=== PATIENT | male | born 1985 | race Caucasian/White ===

== ENCOUNTER 2017-08-17 20:02 | Emergency (ER) | payer MEDICARE, MEDICAID ==
[~2017-08-17 20:02] MED LIST: AA/A14DR7 OT; ACE500 PO; ALB17R INH; ALB18R INH; ALBU8.5H12 IH; ALPR-429 PO; AZIT-1 PO; AZIT1PAC21 PO; BENZ200C15 PO; CEPH500C24 PO; CIP500 PO; CIPR-214 PO; CLA500 PO; CLI150 PO; CYC10 PO; CYCL-332 PO; CYCL10TA29 PO; DOXY-179 PO; HYDR-3083 PO; HYDR-3140 PO; HYDR-389 PO; HYDR-4308 PO; HYDR-4309 PO; HYDR1TAB PO; IBU800 PO; IBUP-1618 PO; IBUP600T22 PO; IBUP800T37 PO; KET10 PO; LOR1 PO; LOR5 PO; LOR5/325 PO; LOR75 PO; METH4TAB66 PO; METHO500 PO; METR-1 PO; NAP250 PO; NAPR-1003 PO; NAPR220C13 PO; NO HOME MEDS; NOR5/325 PO; OMEP-153 PO; OMEP-218 PO; ONDA4TAB PO; OXYC-865 PO; OXYC-869 PO; PER PO; PRE20 PO; PRED20TA6 PO; PROAIRPT IH; PROM-110 PO; SUCR1ORA17 PO; TRA50 PO; TRAM-627 PO; [UNRECOGNIZED DRUG - CODE] PO
--- NOTE | 2017-08-17 20:08 | ER Report ---
History and Physical Time Seen By MD: 20:07 HPI/ROS CHIEF COMPLAINT: Abdominal pain HISTORY OF PRESENT ILLNESS: 32-year-old male presents ambulatory to the ER complaining of abdominal pain for 3 days. He notes increased pain with flexing of his abdominal muscles. He notes the pain is most intense at that margin of his pubic bone. Extending up into his abdomen. He's had no nausea, vomiting, diarrhea or constipation. He denies fever or chills. He denies dysuria, frequency or hematuria. He states he was moving a large trailer that got stuck. He was pushing it with all of his might. REVIEW OF SYSTEMS: Respiratory: No cough, no dyspnea. Cardiovascular: No chest pain, no palpitations. Gastrointestinal: As above Musculoskeletal: No back pain. Allergies: Coded Allergies: Penicillins (Verified Allergy, Mild, 08/17/17) amoxicillin (Verified Allergy, Mild, 08/17/17) hydromorphone HCl (Verified Adverse Reaction, Mild, MAKES HIM VERY SICK., 08/17/17) Home Meds Active Scripts Tramadol Hcl (TRAMADOL HCL) 50 Mg Tablet, 1 TAB PO Q6H Y for PAIN, #15 MG TAKE ONE TO TWO TABLETS BY MOUTH EVERY FOUR TO SIX HOURS NEEDED Prov:LISE BHATIA DO 08/17/17 Reported Medications Levetiracetam (LEVETIRACETAM) 500 Mg Tablet, 500 MG PO BID 08/17/17 Albuterol Sulfate (VENTOLIN HFA) 18 Gm Inh, 1-2 PUFF INH 3-4XD, INH 04/06/17 Reviewed Nurses Notes: Yes Old Medical Records Reviewed: Yes Hx Smoking: Yes Smoking Status: Current: Every Day Smoker Exposure to Second Hand Smoke?: Yes Hx Substance Use Disorder: No Hx Alcohol Use: Yes (OCC) Constitutional Vital Sign - Last 24 Hours 08/17/17 08/17/17 08/17/17 08/17/17 20:13 20:13 20:17 20:32 Temp 98.5 Pulse 76 69 70 Resp 16 B/P (MAP) 135/82 135/82 (99) Pulse Ox 97 100 100 O2 Delivery Room Air 08/17/17 20:37 Pulse 64 Pulse Ox 97 Physical Exam General Appearance: The patient is alert, has no immediate need for airway protection and no current signs of toxicity.. Vital signs stable, afebrile, pulse ox normal HEENT: Pupils equal and round no injection. Oropharynx without redness or exudate, mucous. Membranes are moist Respiratory: Chest is non tender, lungs are clear to auscultation. Cardiac: regular rate and rhythm Gastrointestinal: Abdomen is soft, no masses, bowel sounds normal. There is tenderness on flexion of the abdominal muscles and palpation. There is mild tenderness on palpation with relaxation the muscles. There is no rebound or guarding, says especially tender in the lower abdomen over the pubic symphysis on the insertion of the abdominal rectus muscles Musculoskeletal: Neck: Neck is supple and non tender. No lymphadenopathy Extremities have full range of motion and are non tender. Skin: No rashes or lesions. DIFFERENTIAL DIAGNOSIS: After history and physical exam differential diagnosis was considered for abdominal pain including but not limited to appendicitis, cholecystitis, abdominal muscle wall strain, gastritis and urinary tract infection. Medical Decision Making ED Course/Re-evaluation ED Course Patient was admitted to an examination room. H&P was done. The dental diagnoses was considered. On clinical examination. Patient has abdominal wall tenderness on examination. There is no deep pathology. He has no associated symptoms to suggest GI pathology such as vomiting, diarrhea or fever. Patient advised to conservative treatment plan of Tylenol and ibuprofen. He'll be given a limited supply of tramadol for Her and pain relief. He is advised to apply heating pad to his abdominal wall in the most affected areas. Patient advised to follow-up with primary care if unimproved in one week. Decision to Disposition Date: Aug 17, 2017 Decision to Disposition Time: 20:34 Depart Departure Latest Vital Signs Vital Signs Date Time Temp Pulse Resp B/P (MAP) Pulse Ox O2 Delivery O2 Flow Rate FiO2 08/17/17 20:37 64 97 08/17/17 20:13 135/82 (99) 08/17/17 20:13 98.5 16 Room Air Impression: Primary Impression: Strain of muscle, fascia and tendon of abdomen, initial encounter Condition: Improved Disposition: HOME OR SELF-CARE Referrals: MUNDO MARR (PCP) New Scripts Tramadol Hcl (TRAMADOL HCL) 50 Mg Tablet 1 TAB PO Q6H Y for PAIN, #15 MG TAKE ONE TO TWO TABLETS BY MOUTH EVERY FOUR TO SIX HOURS NEEDED Prov: LISE BHATIA DO 08/17/17 Patient Instructions: Muscle Strain (ED) Additional Instructions: Take ibuprofen 200 mg 3 tablets 3 times a day with food Apply heating pad to your abdominal wall to help the muscles heal Follow-up with your primary care if unimproved in one week LISE BHATIA DO Aug 17, 2017 20:08
[2017-08-17 20:13] VITALS: BP 135/82
[2017-08-17] MEDS ORDERED: LEVE500T73 PO (20:17)
[2017-08-17] MEDS ORDERED: TRAM-420 PO (20:37)
[2017-08-17] MEDS ORDERED: traMADol 50 MG TAB TH 2 TAB/BOTTLE PO ONE (20:45)
== END 2017-08-17 20:48 | disposition home or self-care (01) ==
LOC: ER 20:29
DX: S39.011A Strain of muscle, fascia and tendon of abdomen, initial encounter (principal)
CPT/HCPCS: 99282; A9270; C9399

== ENCOUNTER 2017-08-20 04:31 | Inpatient (IN) | payer MEDICARE, MEDICAID ==
[2017-08-20] VITALS (11 sets, daily range): BP systolic 109–134; BP diastolic 65–87
[~2017-08-20] VITALS: Ht 170.2 cm; Wt 69.4 kg
[~2017-08-20 04:31] MED LIST changes: +LEVE500T73 PO; +TRAM-420 PO
--- NOTE | 2017-08-20 04:43 | ER Report ---
History and Physical Time Seen By MD: 04:42 Hx. of Stated Complaint: Pt reporting abdominal pain with associated nausea. BM yesterday. Pt states he took half a norco with no relief. HPI/ROS CHIEF COMPLAINT: abdominal pain HISTORY OF PRESENT ILLNESS: This is a 32 year old male. He has been having abdominal pain for about a week now. Epigastric area and radiated down to lower abdomen, worse on the right side. He was seen and told he had abdominal muscle strain, but not improving and the patient does not think that this is a strain. He has no fevers or chills. He has nausea and vomiting. He has been having daily bowel movements, brown stool without blood or melena. No diarrhea. Normal urination without dysuria. Moving makes the pain worse. Deep breaths and coughing seem to make it worse as well. He has no shortness of breath or chest pain. Some pain into his back. No history of abdominal problems, surgeries, but he does have a history of being diagnosed with H pylori, but stopped the medications because they were causing problems. REVIEW OF SYSTEMS: Constitutional: No fever or chills. Eyes: No vision changes. ENT: No sore throat. No congestion. Cardiovascular: No chest pain. No palpitations. Respiratory: No cough. Gastrointestinal: as above. Genitourinary: as above. Musculoskeletal: No other musculoskeletal pain. Skin: No rashes. Neurological: No numbness. No headache. Allergies: Coded Allergies: Penicillins (Verified Allergy, Mild, 08/17/17) amoxicillin (Verified Allergy, Mild, 08/17/17) hydromorphone HCl (Verified Adverse Reaction, Mild, MAKES HIM VERY SICK., 08/17/17) Uncoded Allergies: contrast dye (Adverse Reaction, Unknown, 08/20/17) Home Meds Active Scripts Tramadol Hcl (TRAMADOL HCL) 50 Mg Tablet, 1 TAB PO Q6H Y for PAIN, #15 MG TAKE ONE TO TWO TABLETS BY MOUTH EVERY FOUR TO SIX HOURS NEEDED Prov:LISE BHATIA DO 08/17/17 Reported Medications Levetiracetam (LEVETIRACETAM) 500 Mg Tablet, 500 MG PO BID 08/17/17 Albuterol Sulfate (VENTOLIN HFA) 18 Gm Inh, 1-2 PUFF INH 3-4XD, INH 12/5/17 Reviewed Nurses Notes: Yes Hx Smoking: Yes Smoking Status: Current: Every Day Smoker Exposure to Second Hand Smoke?: Yes Hx Substance Use Disorder: No Hx Alcohol Use: Yes (OCC) Constitutional Vital Sign - Last 24 Hours 08/20/17 08/20/17 08/20/17 08/20/17 04:35 04:36 04:46 04:51 Temp 97.5 Pulse 76 76 58 Resp 16 B/P (MAP) 138/80 (99) 138/80 Pulse Ox 100 100 O2 Delivery Room Air 08/20/17 08/20/17 08/20/17 08/20/17 05:21 05:41 05:42 06:00 Pulse 52 52 B/P (MAP) 131/103 (112) 137/75 (95) Pulse Ox 100 99 97 08/20/17 08/20/17 08/20/17 08/20/17 06:02 06:24 06:32 06:40 Pulse 62 72 B/P (MAP) 114/89 (97) 121/79 (93) Pulse Ox 98 99 08/20/17 08/20/17 08/20/17 08/20/17 06:47 06:54 06:59 07:00 Pulse 53 56 54 B/P (MAP) 125/80 (95) Pulse Ox 98 98 96 Physical Exam General Appearance: The patient is alert. Having some acute distress due to pain. Eyes: Pupils are equal, round. No pallor, injection or icterus. ENT: Mucous membranes are moist. Normal oral mucosa. Posterior oropharynx is normal. Neck: Supple and non tender. Respiratory: Lungs are clear to auscultation. Deep breaths do seem to exacerbate the abdominal pain. Cardiovascular: Regular rate and rhythm. No murmurs, gallops or rubs. Normal capillary refill. Gastrointestinal: Abdomen is soft, diffuse tenderness worse in epigastric and right lower abdomen. Nondistended. He has guarding, but no rebound. No masses or organomegaly. Normal active bowel sounds. Has some mild discomfort with percussion of the costovertebral angles bilaterally, somewhat more on the right side. Neurological: Alert and oriented x3. No focal neurologic deficits Skin: Warm and dry. Musculoskeletal: Extremities are nontender. No tenderness in palpation of the cervical, thoracic and lumbar spine. DIFFERENTIAL DIAGNOSIS: After history and physical exam, differential diagnosis was considered for abdominal pain including but not limited to appendicitis, cholecystitis, gastritis, ulcer disease, history of h pylori (not completely treated) and urinary tract infection. Medical Decision Making Data Points Result Diagram: 08/20/17 0509 08/20/17 0509 Laboratory Hematology Test 08/20/17 04:37 08/20/17 05:09 Urine Color Yellow Urine Clarity Clear Urine pH 6.0 pH (4.8-9.5) Urine Specific Junior 1.021 Urine Protein Negative mg/dL (NEGATIVE) Urine Glucose (UA) Negative mg/dL (NEGATIVE) Urine Ketones Trace mg/dL (NEGATIVE) Urine Blood Negative (NEGATIVE) Urine Nitrite Negative (NEGATIVE) Urine Bilirubin Negative (NEGATIVE) Urine Urobilinogen 2.0 mg/dL (0.2-1.9) Urine Leukocyte Esterase Negative (NEGATIVE) Urine RBC None /HPF (0-2/HPF) Urine WBC <1 /HPF (0-5/HPF) Urine Squamous Epithelial Cells Few /LPF (</=FEW) Urine Bacteria Negative /HPF (NONE-FEW) Urine Mucus Few /HPF (NONE-FEW) Red Blood Count 5.86 M/uL (4.00-5.60) Mean Corpuscular Volume 90.5 fL (80.0-96.0) Mean Corpuscular Hemoglobin 31.4 pg (26.0-33.0) Mean Corpuscular Hemoglobin Concent 34.7 g/dL (32.0-36.0) Red Cell Distribution Width 13.6 % (11.5-14.5) Mean Platelet Volume 8.0 fL (7.2-11.1) Neutrophils (%) (Auto) 81.6 % (39.4-72.5) Lymphocytes (%) (Auto) 10.6 % (17.6-49.6) Monocytes (%) (Auto) 7.0 % (4.1-12.4) Eosinophils (%) (Auto) 0.6 % (0.4-6.7) Basophils (%) (Auto) 0.2 % (0.3-1.4) Nucleated RBC Relative Count (auto) 0.0 /100WBC Neutrophils # (Auto) 11.4 K/uL (2.0-7.4) Lymphocytes # (Auto) 1.5 K/uL (1.3-3.6) Monocytes # (Auto) 1.0 K/uL (0.3-1.0) Eosinophils # (Auto) 0.1 K/uL (0.0-0.5) Basophils # (Auto) 0.0 K/uL (0.0-0.1) Nucleated RBC Absolute Count (auto) 0.00 K/uL Sodium Level 139 mmol/L (137-145) Potassium Level 4.2 mmol/L (3.5-5.0) Chloride Level 102 mmol/L (98-107) Carbon Dioxide Level 24 mmol/L (22-30) Blood Urea Nitrogen 10 mg/dl (9-21) Creatinine 0.90 mg/dl (0.66-1.25) Glomerular Filtration Rate Calc > 60.0 Random Glucose 141 mg/dl (75-110) Calcium Level 9.8 mg/dl (8.4-10.2) Total Bilirubin 1.0 mg/dl (0.2-1.3) Aspartate Amino Transf (AST/SGOT) 16 U/L (0-35) Alanine Aminotransferase (ALT/SGPT) 18 U/L (0-56) Alkaline Phosphatase 81 U/L (0-126) Total Protein 7.2 gm/dl (6.3-8.2) Albumin 4.3 g/dl (3.5-5.0) Amylase Level 131 U/L (0-110) Lipase 271 U/L (23-300) Chemistry Test 08/20/17 04:37 08/20/17 05:09 Urine Color Yellow Urine Clarity Clear Urine pH 6.0 pH (4.8-9.5) Urine Specific Junior 1.021 Urine Protein Negative mg/dL (NEGATIVE) Urine Glucose (UA) Negative mg/dL (NEGATIVE) Urine Ketones Trace mg/dL (NEGATIVE) Urine Blood Negative (NEGATIVE) Urine Nitrite Negative (NEGATIVE) Urine Bilirubin Negative (NEGATIVE) Urine Urobilinogen 2.0 mg/dL (0.2-1.9) Urine Leukocyte Esterase Negative (NEGATIVE) Urine RBC None /HPF (0-2/HPF) Urine WBC <1 /HPF (0-5/HPF) Urine Squamous Epithelial Cells Few /LPF (</=FEW) Urine Bacteria Negative /HPF (NONE-FEW) Urine Mucus Few /HPF (NONE-FEW) White Blood Count 14.0 k/uL (4.5-11.0) Red Blood Count 5.86 M/uL (4.00-5.60) Hemoglobin 18.4 g/dL (14.0-18.0) Hematocrit 53.0 % (42.0-52.0) Mean Corpuscular Volume 90.5 fL (80.0-96.0) Mean Corpuscular Hemoglobin 31.4 pg (26.0-33.0) Mean Corpuscular Hemoglobin Concent 34.7 g/dL (32.0-36.0) Red Cell Distribution Width 13.6 % (11.5-14.5) Platelet Count 212 K/uL (150-450) Mean Platelet Volume 8.0 fL (7.2-11.1) Neutrophils (%) (Auto) 81.6 % (39.4-72.5) Lymphocytes (%) (Auto) 10.6 % (17.6-49.6) Monocytes (%) (Auto) 7.0 % (4.1-12.4) Eosinophils (%) (Auto) 0.6 % (0.4-6.7) Basophils (%) (Auto) 0.2 % (0.3-1.4) Nucleated RBC Relative Count (auto) 0.0 /100WBC Neutrophils # (Auto) 11.4 K/uL (2.0-7.4) Lymphocytes # (Auto) 1.5 K/uL (1.3-3.6) Monocytes # (Auto) 1.0 K/uL (0.3-1.0) Eosinophils # (Auto) 0.1 K/uL (0.0-0.5) Basophils # (Auto) 0.0 K/uL (0.0-0.1) Nucleated RBC Absolute Count (auto) 0.00 K/uL Glomerular Filtration Rate Calc > 60.0 Calcium Level 9.8 mg/dl (8.4-10.2) Total Bilirubin 1.0 mg/dl (0.2-1.3) Aspartate Amino Transf (AST/SGOT) 16 U/L (0-35) Alanine Aminotransferase (ALT/SGPT) 18 U/L (0-56) Alkaline Phosphatase 81 U/L (0-126) Total Protein 7.2 gm/dl (6.3-8.2) Albumin 4.3 g/dl (3.5-5.0) Amylase Level 131 U/L (0-110) Lipase 271 U/L (23-300) Urinalysis Test 08/20/17 04:37 Urine Color Yellow Urine Clarity Clear Urine pH 6.0 pH (4.8-9.5) Urine Specific Junior 1.021 Urine Protein Negative mg/dL (NEGATIVE) Urine Glucose (UA) Negative mg/dL (NEGATIVE) Urine Ketones Trace mg/dL (NEGATIVE) Urine Blood Negative (NEGATIVE) Urine Nitrite Negative (NEGATIVE) Urine Bilirubin Negative (NEGATIVE) Urine Urobilinogen 2.0 mg/dL (0.2-1.9) Urine Leukocyte Esterase Negative (NEGATIVE) Urine RBC None /HPF (0-2/HPF) Urine WBC <1 /HPF (0-5/HPF) Urine Squamous Epithelial Cells Few /LPF (</=FEW) Urine Bacteria Negative /HPF (NONE-FEW) Urine Mucus Few /HPF (NONE-FEW) EKG/Imaging Imaging COMPUTED TOMOGRAPHY ABDOMEN AND PELVIS WITHOUT INTRAVENOUS CONTRAST DATE OF EXAM: 08/20/2017 5:21 AM INDICATION: Epigastric abdominal pain, radiating to the lower abdomen. COMPARISON: Lumbar spine and sacroiliac joint radiographs 04/18/2017. TECHNIQUE: Noncontrast abdomen and pelvis CT performed. Sagittal and coronal reconstructions were performed. One of the following dose optimization techniques was utilized in the performance of this exam: Automated exposure control; adjustment of the mA and/or kV according to the patient's size; or use of an iterative reconstruction technique. Specific details can be referenced in the facility's radiology CT exam operational policy. FINDINGS: Lung bases: Clear. Liver: Normal. Gallbladder and bile ducts: Normal. Spleen: Normal. Pancreas: Normal. Adrenals: Normal. Kidneys, ureters and bladder: Normal. Retroperitoneum and aorta: Normal aorta. No adenopathy. GI tract, mesentery and peritoneum: The appendix is dilated, measuring approximately 15 mm in diameter. Appendicolith. There is marked periappendiceal inflammation. Small volume of free fluid in the pelvis is likely reactive. No well-demonstrated drainable collection/abscess. No evidence of obstruction and the remainder of the bowel. No pneumatosis or pneumoperitoneum. Prostate and seminal vesicles: Normal. Bones and soft tissues: No acute abnormality or suspicious lesion. IMPRESSION: Acute appendicitis with marked periappendiceal inflammation and a small volume of free fluid in the pelvis. No definite perforation or drainable collection/abscess. Dr. Holland discussed this case with ANKITA PERALTA on 08/20/2017 5:55 AM. Report Dictated By: Ralph Holland MD at 08/20/2017 5:47 AM ED Course/Re-evaluation Clinical Indication for ER IV: Hydration, IV Access ED Course Initial evaluation was done. Labs obtained. Patient had a noncontrast CT scan of the abdomen and pelvis as noted above. White count is elevated. Patient is afebrile. The rest of labs are unremarkable. CT scan shows acute appendicitis. Initial treatment with a liter of normal saline, Zofran 4 mg IV, and Toradol 30 mg IV did help with his pain and symptoms. I discussed the case with Dr. Reese. The patient was started on Levaquin 500 milligrams IV, Flagyl 500 mg IV , and we added 2 mg of IV morphine to help with pain. Decision to Disposition Date: Aug 20, 2017 Decision to Disposition Time: 06:12 Depart Departure Latest Vital Signs Vital Signs Date Time Temp Pulse Resp B/P (MAP) Pulse Ox O2 Delivery O2 Flow Rate FiO2 08/20/17 07:00 125/80 (95) 08/20/17 06:59 54 96 08/20/17 04:36 97.5 16 Room Air Impression: Primary Impression: Appendicitis Condition: Condition Unchanged Disposition: ADMIT FROM ER TO OR Referrals: MUNDO MARR (PCP) Problem Qualifiers Primary Impression: Appendicitis Appendicitis type: acute appendicitis Acute appendicitis type: with localized peritonitis Qualified Codes: K35.3 - Acute appendicitis with localized peritonitis ANKITA PERALTA MD Aug 20, 2017 04:43
[2017-08-20] MEDS ORDERED: NS(*) 0.9% 1000 ML BAG 1,000 ML IV ONE (04:49)
[2017-08-20] MEDS ORDERED: ONDANSETRON 4 MG/2 ML VIAL IVP ONE (04:50)
[2017-08-20] MEDS ORDERED: PANTOPRAZOLE SOD 40 MG IV VIAL IVP ONE (04:50)
[2017-08-20] MEDS ORDERED: KETOROLAC 30 MG/ML VIAL IVP ONE (04:50)
[2017-08-20] MEDS ORDERED: IOPAMIDOL 76% 75 ML INFUS BTL 0 ML ONE ×2 (05:00→05:19)
[2017-08-20 05:16] LABS: PLATELET COUNT, AUTOMATED 212 K/uL (150-450)
[2017-08-20] MEDS ORDERED: metroNIDAZOLE* 500MG/100ML BAG 100 ML IVPB ONE (06:00)
[2017-08-20] MEDS ORDERED: MORPHINE 2 MG/ML SYR IVP ONE (06:00)
[2017-08-20] MEDS ORDERED: LEVOFLOXACIN/D5W*500 MG/100 ML 100 ML IVPB ONE (06:00)
--- NOTE | 2017-08-20 06:00 | RADIOLOGY IMAGING REPORT ---
FACILITY: [facility] PATIENT NAME: Wily Urbano : 1985 MR: [id number] V: [id number] EXAM DATE: ORDERING PHYSICIAN: ANKITA PERALTA TECHNOLOGIST: Location: [facility] Patient: Wily Urbano : 1985 Visit/Account:[id number] Date of Sevice: 08/20/2017 COMPUTED TOMOGRAPHY ABDOMEN AND PELVIS WITHOUT INTRAVENOUS CONTRAST DATE OF EXAM: 08/20/2017 5:21 AM INDICATION: Epigastric abdominal pain, radiating to the lower abdomen. COMPARISON: Lumbar spine and sacroiliac joint radiographs 04/18/2017. TECHNIQUE: Noncontrast abdomen and pelvis CT performed. Sagittal and coronal reconstructions were pe rformed. One of the following dose optimization techniques was utilized in the performance of this e xam: Automated exposure control; adjustment of the mA and/or kV according to the patient's size; or u se of an iterative reconstruction technique. Specific details can be referenced in the facility's r adiology CT exam operational policy. FINDINGS: Lung bases: Clear. Liver: Normal. Gallbladder and bile ducts: Normal. Spleen: Normal. Pancreas: Normal. Adrenals: Normal. Kidneys, ureters and bladder: Normal. Retroperitoneum and aorta: Normal aorta. No adenopathy. GI tract, mesentery and peritoneum: The appendix is dilated, measuring approximately 15 mm in diamet er. Appendicolith. There is marked periappendiceal inflammation. Small volume of free fluid in the pelvis is likely reactive. No well-demonstrated drainable collection/abscess. No evidence of obstr uction and the remainder of the bowel. No pneumatosis or pneumoperitoneum. Prostate and seminal vesicles: Normal. Bones and soft tissues: No acute abnormality or suspicious lesion. IMPRESSION: Acute appendicitis with marked periappendiceal inflammation and a small volume of free fl uid in the pelvis. No definite perforation or drainable collection/abscess. Dr. Holland discussed this case with ANKITA PERALTA on 08/20/2017 5:55 AM. Report Dictated By: Ralph Holland MD at 08/20/2017 5:47 AM Report E-Signed By: Ralph Holland MD at 08/20/2017 5:55 AM WSN:[id number]
[2017-08-20] MEDS ORDERED: NORMOSOL R SOLN(*) 1000 ML BAG 1,000 ML IV ONE (06:55)
--- NOTE | 2017-08-20 07:11 | Gen Surgery History & Physical ---
History of Present Illness Chief Complaint Abdominal pain History of Present Illness 32yo male presents with 6 days of abdominal pain that worsened last night prompting him to return to the ER. He came in to the ER 2 days ago for similar complaints but he was sent home but his pain continued and worsened prompting him to return for further w/u. Subjective fevers/chills. Nausea. No emesis. No constipation or diarrhea. History Problems: (1) Seizure disorder Status: Chronic Home Meds Active Scripts Tramadol Hcl (TRAMADOL HCL) 50 Mg Tablet, 1 TAB PO Q6H Y for PAIN, #15 MG TAKE ONE TO TWO TABLETS BY MOUTH EVERY FOUR TO SIX HOURS NEEDED Prov:LISE BHATIA DO 08/17/17 Reported Medications Levetiracetam (LEVETIRACETAM) 500 Mg Tablet, 500 MG PO BID 08/17/17 Albuterol Sulfate (VENTOLIN HFA) 18 Gm Inh, 1-2 PUFF INH 3-4XD, INH 04/06/17 Allergies: Coded Allergies: Penicillins (Verified Allergy, Mild, 08/17/17) amoxicillin (Verified Allergy, Mild, 08/17/17) hydromorphone HCl (Verified Adverse Reaction, Mild, MAKES HIM VERY SICK., 08/17/17) Uncoded Allergies: contrast dye (Adverse Reaction, Unknown, 08/20/17) Review of Systems All Systems Reviewed/Normal: Yes, Except as Noted Constitutional: Fever, Chills Gastrointestinal: Nausea, Abdominal Pain Exam General Appearance: Alert, Awake, No Acute Distress, Afebrile Neuro: No Gross deficits Eyes: PERRLA GI: Other (Soft, RLQ TTP with focal peritonitis) Extremities: Warm, Perfused Medical Decision Making Data Points Result Diagram: 08/20/17 0509 08/20/17 0509 Assessment and Plan Problems: (1) Appendicitis Status: Acute Assessment & Plan: 08/20/17: Admit, NPO, IV fluids, IV abx, to OR for lap appy. I have explained the plan and surgery with the patient in great detail as well as the alternatives, risks and expected recovery. He indicates his understanding of this discussion and his questions have been answered. He would like to proceed with this plan including surgery. Condition Stable. Time Spent: < 30 min Venous Thromboembolism VTE Risk Physician Assess for VTE Risk: Yes Patient's VTE Risk: Low VTE Diagnostic Test 2 Days Prior to Admit: No Antithrombotics Is Pt On Any Antithrombotics?: No Problem Qualifiers (1) Appendicitis: Appendicitis type: acute appendicitis Acute appendicitis type: with localized peritonitis Qualified Codes: K35.3 - Acute appendicitis with localized peritonitis BRADY GAYLE MD Aug 20, 2017 07:11
[2017-08-20] MEDS ORDERED: levETIRAcetam 500 MG TAB PO ONE (08:05)
[2017-08-20] MEDS ORDERED: ROCURONIUM BROM 10 MG/ML 10 ML ONE (08:21)
[2017-08-20] MEDS ORDERED: PROPOFOL EMUL(*) 10MG/ML 20 ML 20 ML ONE (08:22)
[2017-08-20] MEDS ORDERED: DEXAMETHASONE SOD 4 MG/ML VIAL ONE (08:22)
[2017-08-20] MEDS ORDERED: ONDANSETRON 4 MG/2 ML VIAL ONE (08:22)
[2017-08-20] MEDS ORDERED: LIDOCAINE MPF 1% 5 ML VIAL ONE (08:22)
[2017-08-20] MEDS ORDERED: fentaNYL CITR 100 MCG/2 ML AMP ONE ×3 (08:56→12:33)
[2017-08-20] MEDS ORDERED: ROPIVACAINE 0.5% 20 ML VIAL ONE (09:41)
[2017-08-20] MEDS ORDERED: SUGAMMADEX SOD 200 MG/2 ML SDV ONE (10:54)
[2017-08-20] MEDS ORDERED: ACETAMINOPHEN(*)1000 MG/100 ML 100 ML IVPB ONE (10:59)
[2017-08-20] MEDS ORDERED: LIDOCAINE 2% IV 100 MG/5ML SYR ONE (11:22)
[2017-08-20] MEDS ORDERED: FLUSH 10 ML SYR IVP PRN (11:45)
[2017-08-20] MEDS ORDERED: MORPHINE 2 MG/ML SYR IVP PRN (11:45)
[2017-08-20] MEDS ORDERED: PROMETHAZINE 25 MG/ML 1 ML AMP IVP PRN (11:45)
[2017-08-20] MEDS ORDERED: ALBUTEROL/IPRATROPIUM 3 ML NEB NEB PRN (11:45)
[2017-08-20] MEDS ORDERED: ONDANSETRON 4 MG/2 ML VIAL IVP PRN (11:45)
[2017-08-20] MEDS ORDERED: NS(*) 0.9% 1000 ML BAG 1,000 ML IV PRN (11:45)
[2017-08-20] MEDS ORDERED: NALOXONE HCL 0.4 MG/ML VIAL IVP PRN (11:45)
--- NOTE | 2017-08-20 11:59 | Post Operative Progress Note ---
Post Operative Progress Note Date: Aug 20, 2017 Time: 11:51 Surgeon: Néstor Dictation number: [id number] Anesthesia: GETA by Dr. Bonilla Pre-Op Diagnosis: Acute Appendicitis Post-Op Diagnosis: Acute perforated appendicitis with periappendiceal abscess Findings: Periappendiceal abscess Procedure(s): Lap appy Specimen Removed:(May be N/A): Appendix Complications: None Fluids: See anesthesia record Estimated Blood Loss: Minimal Date OP Note Dictated: Aug 20, 2017 Time OP Note Dictated: 11:52 BRADY GAYLE MD Aug 20, 2017 11:59
[2017-08-20] MEDS: metroNIDAZOLE* 500MG/100ML BAG 100 ML IVPB SCH ×2 (13:57→22:16)
[2017-08-20] MEDS: levETIRAcetam 500 MG TAB PO SCH (17:50)
--- NOTE | 2017-08-20 18:51 | OPERATIVE REPORT 1 ---
EVENT DATE: August 20, 2017 SURGEON: Kt Palm MD ANESTHESIOLOGIST: Kt Bonilla MD ANESTHESIA: General endotracheal anesthesia. PREOPERATIVE DIAGNOSIS Acute appendicitis. POSTOPERATIVE DIAGNOSIS Acute perforated appendicitis with periappendiceal abscess. PROCEDURE PERFORMED Laparoscopic appendectomy. COMPLICATIONS None. CONDITION Stable. BLOOD LOSS Minimal. FINDINGS The patient's appendix was grossly inflamed and had perforated into a periappendiceal abscess. There were the beginnings of a phlegmon. INDICATIONS This is a 32-year-old gentleman who presented to the Emergency Room with a six- day history of abdominal pain. He apparently had been seen two days ago, but it was thought to be muscular, and so he was sent home. It worsened, prompting him to return to the Emergency Room where a CT scan was found to be consistent with appendicitis. He has been admitted for further management by myself. DESCRIPTION OF PROCEDURE The patient was brought to the operating room, placed supine on the operating table. General endotracheal anesthesia was administered. His abdomen was prepped and draped in a sterile fashion. Timeout was completed, and I injected the umbilical skin with 0.5% ropivacaine plain. I made a vertical incision right at the base of the umbilicus and dissected through the dermis and subcutaneous fat. I identified the midline fascia. He had a small umbilical defect as a lot of people do, and I made a vertical incision in the midline fascia using this fascial defect as a starting point. I then easily entered the peritoneal cavity and then placed two interrupted 0 Vicryl sutures transversely through the vertical fascia defect and inserted a 12 mm Ankit- type port through this wound and secured it in place with sutures. I insufflated the abdomen to a pressure of 15 mmHg and inserted a 5 mm port in the suprapubic midline under direct visualization and a second 5 mm port also under direct visualization in the left lower quadrant. The patient was placed in Trendelenburg and planed towards his left to move the viscera away from the right lower quadrant. The appendix was easily identified and was grossly inflamed. I used the Harmonic scalpel to divide the mesoappendix and separate the appendix away from the surrounding tissue. I popped into a periappendiceal abscess and drained quite a bit of pus from this, which I suctioned and irrigated out. After some tedious dissection, which took some work due to the phlegmon and abscess, ultimately I was able to clean off the appendix all the way to the base of the appendix and then used the Endo OMA stapler with a blue load and the appendix from the cecum flush with the cecum using the stapler. The appendix was placed in the surgical specimen retrieval bag and removed from the abdomen through the umbilical port site. I irrigated and dried the right lower quadrant and divided the mesoappendix, the abscess cavity , and the staple line, and there was no remaining pus, no necrotic debris, or bleeding. I removed all the irrigation fluid from the right lower quadrant and above the liver, and also there was some fluid down in the pelvis that I suctioned out. No other abnormalities were found within his abdomen. I then removed the 5 mm ports and inspected the peritoneal surfaces, and there was some bleeding from the suprapubic one which I controlled with the hook electrocautery. There was no bleeding from the other port site. I then desufflated the abdomen, removed the camera, followed by the umbilical port, and placed another 0 Vicryl [id number] suture in the umbilical fascia. I then tied all three of these down with good reapproximation of the fascial edges and no remaining fascial defect. The skin at each incision was closed with 4-0 Monocryl subcuticular sutures. Skin was cleaned and dried, and Steri- Strips were applied, followed by sterile surgical dressings. The patient was then awakened, extubated in the operating room, and transported to the recovery room in stable condition having tolerated the procedure without any apparent problems. CARLIE
[2017-08-20] MEDS: FAMOTIDINE 20 MG TAB PO SCH (20:55)
[2017-08-20] MEDS: DOCUSATE SODIUM 100 MG CAP PO SCH (20:55)
[2017-08-21] MEDS: metroNIDAZOLE* 500MG/100ML BAG 100 ML IVPB SCH (05:54)
[2017-08-21 08:43] VITALS: BP 114/71
[2017-08-21] MEDS: levETIRAcetam 500 MG TAB PO SCH (08:46)
[2017-08-21] MEDS: DOCUSATE SODIUM 100 MG CAP PO SCH (08:46)
[2017-08-21] MEDS: FAMOTIDINE 20 MG TAB PO SCH (08:46)
[2017-08-21] MEDS ORDERED: DOCU-202 PO (09:14)
[2017-08-21] MEDS ORDERED: METR-160 PO (09:14)
[2017-08-21] MEDS ORDERED: LEVO500T83 PO (09:14)
[2017-08-21] MEDS ORDERED: OXYC-854 PO (09:14)
--- NOTE | 2017-08-21 09:16 | Short(Outpt) Discharge Summary ---
Discharge Summary Reason for Hosp/Final Diag: (1) Appendicitis Status: Acute Hospital Course & Plan: 08/20/17: Admit, NPO, IV fluids, IV abx, to OR for lap appy. I have explained the plan and surgery with the patient in great detail as well as the alternatives, risks and expected recovery. He indicates his understanding of this discussion and his questions have been answered. He would like to proceed with this plan including surgery. 08/21/17: POD#1 s/p lap appy for appendicitis with abscess. Doing well. No fevers overnight. Tolerating diet. Will d/c to home this morning with 5 more days of PO abx. Departure Discharge to: Home, Self Care Discharge Instructions Home Meds Active Scripts Metronidazole (METRONIDAZOLE) 500 Mg Tablet, 1 TAB PO TID, #15 TAB 0 Refills Prov:BRADY GAYLE MD 08/21/17 Levofloxacin 500 Mg Tab (LEVOFLOXACIN 500 MG TAB) 500 Mg Tablet, 1 TAB PO DAILY , #5 TAB 0 Refills Prov:BRADY GAYLE MD 08/21/17 Oxycodone Hcl/Acet 5/325 Mg (ENDOCET 5-325 TABLET) 1 Each Tablet, 1-2 TAB PO Q4H Y for PAIN, #30 TAB 0 Refills Prov:BRADY GAYLE MD 08/21/17 Docusate Sodium (DOCUSATE SODIUM) 100 Mg Capsule, 1 CAP PO BID, #30 CAPSULE 0 Refills Prov:BRADY GAYLE MD 08/21/17 Tramadol Hcl (TRAMADOL HCL) 50 Mg Tablet, 1 TAB PO Q6H Y for PAIN, #15 MG TAKE ONE TO TWO TABLETS BY MOUTH EVERY FOUR TO SIX HOURS NEEDED Prov:LISE BHATIA DO 08/17/17 Reported Medications Levetiracetam (LEVETIRACETAM) 500 Mg Tablet, 500 MG PO BID 08/17/17 Albuterol Sulfate (VENTOLIN HFA) 18 Gm Inh, 1-2 PUFF INH 3-4XD, INH 04/06/17 Follow up Referrals: General Surgery - 09/08/17 @ Surgery, General with Brady Gayle Md You have a follow up appointment scheduled with Dr. Gayle on 09/08/17, at 2: 00pm. Diet: Regular Activity: As Tolerated Special Instructions: You may remove the white surgical dressings on 08/22/17, then you can shower. After showering, leave the incisions open to air but leave the steristrips in place until they fall off on their own. Do not immerse the incisions for 2 weeks. Problem Qualifiers (1) Appendicitis: Appendicitis type: acute appendicitis Acute appendicitis type: with localized peritonitis Qualified Codes: K35.3 - Acute appendicitis with localized peritonitis BRADY GAYLE MD Aug 21, 2017 09:16
== END 2017-08-21 09:45 | disposition home or self-care (01) | DRG 340 ==
LOC: ER 04:40 → OR 07:03 → OBSVTOIN 13:07 → MED 13:07
PROVIDERS: ADMIT Surgery; ATTEND Surgery
PROC: 0DTJ4ZZ Resection of Appendix, Percutaneous Endoscopic Approach (ICD-10-PCS; principal; 2017-08-20 10:20)
DX: K35.3 Acute appendicitis with localized peritonitis (principal); F17.210 Nicotine dependence, cigarettes, uncomplicated; J45.909 Unspecified asthma, uncomplicated; Z88.0 Allergy status to penicillin; Z88.5 Allergy status to narcotic agent; G40.909 Epilepsy, unspecified, not intractable, without status epilepticus
CPT/HCPCS: 74176; 81001; 82040; 82150; 82247; 82310; 82374; 82435; 82565; 82947; 83690; 84075; 84132; 84155; 84295; 84450; 84460; 84520; 85025; 88304; 99285; C9113; J0131; J1100; J1885; J1956; J2001; J2270; J2405; J2704; J2795; J3010; J3490; J7030; Q9967

== ENCOUNTER 2017-09-19 19:35 | Emergency (ER) | payer MEDICARE, MEDICAID ==
[~2017-09-19 19:35] MED LIST changes: +DOCU-202 PO; +LEVO500T83 PO; +METR-160 PO; +OXYC-854 PO
--- NOTE | 2017-09-19 19:39 | ER Report ---
History and Physical Time Seen By MD: 19:38 HPI/ROS CHIEF COMPLAINT: Left long finger injury HISTORY OF PRESENT ILLNESS: 32-year-old male presents with left long finger swelling at the PIP joint. Patient states he has finger caught in the door and then he bent and round. Last night. Patient notes significant swelling and bruising proximal to the PIP joint. Patient shows decreased range of motion. He denies any other injuries Allergies: Coded Allergies: Penicillins (Verified Allergy, Mild, 09/19/17) amoxicillin (Verified Allergy, Mild, 09/19/17) ketorolac (Verified Adverse Reaction, Intermediate, 09/19/17) hydromorphone HCl (Verified Adverse Reaction, Mild, MAKES HIM VERY SICK., 09/19/17) Uncoded Allergies: contrast dye (Adverse Reaction, Unknown, 08/20/17) Home Meds Reported Medications Levetiracetam (LEVETIRACETAM) 500 Mg Tablet, 500 MG PO BID 08/17/17 Discontinued Reported Medications Albuterol Sulfate (VENTOLIN HFA) 18 Gm Inh, 1-2 PUFF INH 3-4XD, INH 04/06/17 Discontinued Scripts Oxycodone Hcl/Acet 5/325 Mg (ENDOCET 5-325 TABLET) 1 Each Tablet, 1-2 TAB PO Q4H Y for PAIN, #30 TAB 0 Refills Prov:BRADY GAYLE MD 08/21/17 Reviewed Nurses Notes: Yes Old Medical Records Reviewed: Yes Hx Smoking: Yes Smoking Status: Heavy Tobacco Smoker Exposure to Second Hand Smoke?: Yes Hx Substance Use Disorder: No Hx Alcohol Use: Yes Constitutional Vital Sign - Last 24 Hours 09/19/17 19:40 Temp 97.9 Pulse 82 Resp 14 B/P (MAP) 125/86 Pulse Ox 98 O2 Delivery Room Air Physical Exam General appearance: Alert no distress. Respiratory: Chest is non tender, lungs are clear to auscultation. Cardiac: Regular rate and rhythm Extremities: 77, a left hand reveals a neurovascularly intact hand. There is soft tissue swelling at the long finger PIP joint. There is significantly decreased range of motion. All ligaments appear intact on stress. DIFFERENTIAL DIAGNOSIS: After history and physical exam differential diagnosis was considered for sprain, strain, fracture, dislocation, contusion Medical Decision Making EKG/Imaging Imaging X-ray: Left long finger, 3 views was obtained. I viewed the images myself on the PACS system. My interpretation of the images is: No fracture no dislocation or malalignment. The radiologist interpretation had no clinically significant variation from this interpretation. ED Course/Re-evaluation ED Course Patient was admitted to an examination room. H&P was done. The differential diagnoses was considered. On clinical examination. Patient has significant swelling and decreased range of motion. Diagnostic x-rays are ordered which are unremarkable. Patient was placed in aluminum padded splint. He is advised to take ibuprofen for pain relief. Patient advised to follow-up with primary care if unimproved in 3-5 days. Decision to Disposition Date: September 19, 2017 Decision to Disposition Time: 20:15 Depart Departure Latest Vital Signs Vital Signs Date Time Temp Pulse Resp B/P (MAP) Pulse Ox O2 Delivery O2 Flow Rate FiO2 09/19/17 19:40 97.9 82 14 125/86 98 Room Air Impression: Primary Impression: Sprain of finger of left hand Condition: Improved Disposition: HOME OR SELF-CARE Patient Instructions: Finger Sprain (ED) Additional Instructions: Wear splint for 5 days Use ibuprofen 200 mg 3 tablets 3 times a day for pain relief Apply ice for 2 days Follow-up with primary care if unimproved in 3-5 days Problem Qualifiers Primary Impression: Sprain of finger of left hand Encounter type: initial encounter Finger: middle finger Sprain of finger site: interphalangeal joint Qualified Codes: S63.633A - Sprain of interphalangeal joint of left middle finger, initial encounter LISE BHATIA DO September 19, 2017 19:38
[2017-09-19 19:40] VITALS: BP 125/86
--- NOTE | 2017-09-19 20:28 | RADIOLOGY IMAGING REPORT ---
FACILITY: [facility] [place] PATIENT NAME: Wily Urbano : 1985 MR: [id number] V: [id number] EXAM DATE: ORDERING PHYSICIAN: LISE BHATIA TECHNOLOGIST: Location: [facility] Patient: Wily Urbano : 1985 Visit/Account:[id number] Date of Sevice: 09/19/2017 INDICATION: Left long finger injury. EXAM DATE: 09/19/2017 8:06 PM COMPARISON: None. FINDINGS: 3 views left long finger. Mineralization is normal. No acute alignment abnormality or fracture. Soft tissues may be swollen. No radiopaque foreign body. IMPRESSION: Questionable soft tissue swelling with no acute osseous abnormality of the left long fin ady. Report Dictated By: Ralph Holland MD at 09/19/2017 8:22 PM Report E-Signed By: Ralph Holland MD at 09/19/2017 8:24 PM [id number]
== END 2017-09-19 20:21 | disposition home or self-care (01) ==
LOC: ER 19:50
DX: S63.633A Sprain of interphalangeal joint of left middle finger, initial encounter (principal)
CPT/HCPCS: 99282

== ENCOUNTER 2018-08-01 15:48 | Emergency (ER) | payer MEDICAID, MEDICARE ==
[~2018-08-01 15:48] MED LIST changes: -HYDR-4308 PO; -HYDR-4309 PO; +HYDR-653 PO; +HYDR-654 PO; -METR-160 PO; +METR500T15 PO
[2018-08-01] MEDS ORDERED: LEVE100034 PO (16:03)
--- NOTE | 2018-08-01 16:03 | ER Report ---
History and Physical Time Seen By MD: 16:03 Hx. of Stated Complaint: INCREASED FREQUENCY HPI/ROS CHIEF COMPLAINT: Increased frequency of seizure HISTORY OF PRESENT ILLNESS: 33-year-old male patient presents to the emergency room with complaint of increased frequency of seizures. Patient states that he has had seizures since 2015. He states that he has had increase absence seizures. He states this occurring every day. He states that he will often be very sweaty, he will stare off in space. He states that if he concentrates really hard he will not be able to go into the full-blown seizures. He states that he last saw his neurologist 3 months ago with no change that time. He states he call them today stating that he is having a difficult time and told him that he was coming into the emergency room. REVIEW OF SYSTEMS: Respiratory: No cough, no dyspnea. Cardiovascular: No chest pain, no palpitations. Gastrointestinal: No vomiting, no abdominal pain. Musculoskeletal: No back pain. Allergies: Coded Allergies: Penicillins (Verified Allergy, Mild, 09/19/17) amoxicillin (Verified Allergy, Mild, 09/19/17) ketorolac (Verified Adverse Reaction, Intermediate, 09/19/17) hydromorphone HCl (Verified Adverse Reaction, Mild, MAKES HIM VERY SICK., 09/19/17) Uncoded Allergies: contrast dye (Adverse Reaction, Unknown, 08/20/17) Home Meds Reported Medications Levetiracetam (LEVETIRACETAM) 1,000 Mg Tablet, 1500 MG PO BID, TAB 08/01/18 Levetiracetam (LEVETIRACETAM) 500 Mg Tablet, 500 MG PO BID 08/17/17 Past Medical/Surgical History Patient has a past medical history of seizures. Reviewed Nurses Notes: Yes Hx Smoking: Yes Smoking Status: Current: Every Day Smoker, Heavy Tobacco Smoker Exposure to Second Hand Smoke?: Yes Hx Substance Use Disorder: No Hx Alcohol Use: Yes Constitutional Vital Sign - Last 24 Hours 08/01/18 08/01/18 08/01/18 08/01/18 15:58 16:00 16:30 17:00 Temp 97.8 Pulse 82 70 64 54 Resp 18 16 B/P (MAP) 125/83 127/89 (102) 109/68 (82) 123/69 (87) Pulse Ox 97 98 98 97 O2 Delivery Room Air 08/01/18 08/01/18 08/01/18 08/01/18 17:30 18:00 18:30 19:00 Pulse 55 57 63 59 Resp 25 10 9 7 B/P (MAP) 100/82 (88) 126/83 (97) 128/78 (95) 122/81 (95) Pulse Ox 97 96 97 97 Physical Exam General Appearance: The patient is alert, has no immediate need for airway protection and no current signs of toxicity. Eyes: Pupils equal and round no injection. Respiratory: Chest is non tender, lungs are clear to auscultation. Cardiac: regular rate and rhythm Gastrointestinal: Abdomen is soft and non tender, no masses, bowel sounds normal. Musculoskeletal: Neck: Neck is supple and non tender. Extremities have full range of motion and are non tender. Skin: No rashes or lesions. Neuro: Patient is alert and oriented 4, cranial nerves II through XII grossly intact. DIFFERENTIAL DIAGNOSIS: After history and physical exam differential diagnosis was considered for a seizure including but not limited to electrolyte abnormality, alcohol withdrawal, medication noncompliance, head injury, and breakthrough seizure. Medical Decision Making Data Points Result Diagram: 08/01/18 1628 08/01/18 1628 Laboratory Hematology Test 08/01/18 16:28 08/01/18 16:38 Red Blood Count 5.35 M/uL (4.00-5.60) Mean Corpuscular Volume 92.0 fL (80.0-96.0) Mean Corpuscular Hemoglobin 31.3 pg (26.0-33.0) Mean Corpuscular Hemoglobin Concent 34.1 g/dL (32.0-36.0) Red Cell Distribution Width 13.3 % (11.5-14.5) Mean Platelet Volume 8.3 fL (7.2-11.1) Neutrophils (%) (Auto) 72.0 % (39.4-72.5) Lymphocytes (%) (Auto) 15.7 % (17.6-49.6) Monocytes (%) (Auto) 10.9 % (4.1-12.4) Eosinophils (%) (Auto) 0.7 % (0.4-6.7) Basophils (%) (Auto) 0.7 % (0.3-1.4) Nucleated RBC Relative Count (auto) 0.0 /100WBC Neutrophils # (Auto) 4.9 K/uL (2.0-7.4) Lymphocytes # (Auto) 1.1 K/uL (1.3-3.6) Monocytes # (Auto) 0.7 K/uL (0.3-1.0) Eosinophils # (Auto) 0.0 K/uL (0.0-0.5) Basophils # (Auto) 0.0 K/uL (0.0-0.1) Nucleated RBC Absolute Count (auto) 0.00 K/uL Sodium Level 139 mmol/L (137-145) Potassium Level 3.6 mmol/L (3.5-5.0) Chloride Level 106 mmol/L (98-107) Carbon Dioxide Level 24 mmol/L (22-30) Blood Urea Nitrogen 7 mg/dl (9-21) Creatinine 0.80 mg/dl (0.66-1.25) Glomerular Filtration Rate Calc > 60.0 Random Glucose 96 mg/dl (75-110) Calcium Level 9.2 mg/dl (8.4-10.2) Magnesium Level 1.8 mg/dl (1.7-2.2) Total Bilirubin 0.5 mg/dl (0.2-1.3) Aspartate Amino Transf (AST/SGOT) 20 U/L (0-35) Alanine Aminotransferase (ALT/SGPT) 18 U/L (0-56) Alkaline Phosphatase 73 U/L (0-126) Total Protein 7.0 g/dl (6.3-8.2) Albumin 4.4 g/dl (3.5-5.0) Serum Alcohol < 10 mg/dl Whole Blood Glucose 100 mg/DL (75-110) Chemistry Test 08/01/18 16:28 08/01/18 16:38 White Blood Count 6.8 k/uL (4.5-11.0) Red Blood Count 5.35 M/uL (4.00-5.60) Hemoglobin 16.8 g/dL (14.0-18.0) Hematocrit 49.2 % (42.0-52.0) Mean Corpuscular Volume 92.0 fL (80.0-96.0) Mean Corpuscular Hemoglobin 31.3 pg (26.0-33.0) Mean Corpuscular Hemoglobin Concent 34.1 g/dL (32.0-36.0) Red Cell Distribution Width 13.3 % (11.5-14.5) Platelet Count 211 K/uL (150-450) Mean Platelet Volume 8.3 fL (7.2-11.1) Neutrophils (%) (Auto) 72.0 % (39.4-72.5) Lymphocytes (%) (Auto) 15.7 % (17.6-49.6) Monocytes (%) (Auto) 10.9 % (4.1-12.4) Eosinophils (%) (Auto) 0.7 % (0.4-6.7) Basophils (%) (Auto) 0.7 % (0.3-1.4) Nucleated RBC Relative Count (auto) 0.0 /100WBC Neutrophils # (Auto) 4.9 K/uL (2.0-7.4) Lymphocytes # (Auto) 1.1 K/uL (1.3-3.6) Monocytes # (Auto) 0.7 K/uL (0.3-1.0) Eosinophils # (Auto) 0.0 K/uL (0.0-0.5) Basophils # (Auto) 0.0 K/uL (0.0-0.1) Nucleated RBC Absolute Count (auto) 0.00 K/uL Glomerular Filtration Rate Calc > 60.0 Calcium Level 9.2 mg/dl (8.4-10.2) Magnesium Level 1.8 mg/dl (1.7-2.2) Total Bilirubin 0.5 mg/dl (0.2-1.3) Aspartate Amino Transf (AST/SGOT) 20 U/L (0-35) Alanine Aminotransferase (ALT/SGPT) 18 U/L (0-56) Alkaline Phosphatase 73 U/L (0-126) Total Protein 7.0 g/dl (6.3-8.2) Albumin 4.4 g/dl (3.5-5.0) Serum Alcohol < 10 mg/dl Whole Blood Glucose 100 mg/DL (75-110) Toxicology Test 08/01/18 16:28 Serum Alcohol < 10 mg/dl EKG/Imaging Imaging Exam type: CHEST PA LAT History: Seizure today, shortness of breath Comparison: April 22, 2014. Findings: There is hyperinflation of the lung levy. Mild chronic peribronchial thickening bilaterally. No evidence of acute appearing infiltrates pleural effusions or pulmonary edema. The cardiac silhouette is normal in size. A nodular density projecting over the right lower thorax could represent a nipple shadow although a follow-up chest with nipple markers may be helpful IMPRESSION: 1. Hyperinflation of the lungs Mild chronic peribronchial thickening bilaterally A nodular density projects over the right lower thorax which could represent a nipple shadow although a follow-up chest with nipple markers may be helpful Report Dictated By: Lesly Mahajan MD at 08/01/2018 5:50 PM Report E-Signed By: Lesly Mahajan MD at 08/01/2018 5:53 PM EXAMINATION: CT head without IV contrast HISTORY: Seizure. COMPARISON: CT head from 03/07/2017 and brain MRI from 04/23/2017. TECHNIQUE: Contiguous axial images were obtained from the skull base to the vertex without intravenous contrast. Sagittal and coronal reformatted images are also submitted. One of the following dose optimization techniques was utilized in the performa nce of this exam: Automated exposure control; adjustment of the mA and/or kV according to the patient's size; or use of an iterative reconstruction technique. Specific details can be referenced in the facility's radiology CT exam operational policy. FINDINGS: Brain volume: Normal. Ventricles: Normal. Acute ischemic changes: None. Hemorrhage: No acute intracranial hemorrhage. Masses/edema: None. Benton-white: Negative. White matter: Normal. Vessels: Negative. Extra-axial: Negative. Calvarium/scalp: No acute fracture. Skull base/visualized face: Negative. Visualized sinuses/orbits: Mild nasal septal deviation to the left. IMPRESSION: No acute fracture, hemorrhage or intracranial mass lesion. No CT evidence of acute infarct. Report Dictated By: Rosio Gleason MD at 08/01/2018 5:50 PM Report E-Signed By: Rosio Gleason MD at 08/01/2018 5:52 PM ED Course/Re-evaluation ED Course Patient was admitted to exam room, history and physical were obtained. Differential diagnoses were considered. On examination lungs are clear, heart is regular, abdomen soft nontender. Neurologically patient was alert and oriented 4, cranial nerves II through XII grossly intact. A CBC, CMP, Keppra level, magnesium level were drawn. The lab results were unremarkable. A CT scan of the head as well as a chest x-ray were done which showed no acute findings. I discussed the findings with the patient and his . I discussed with him that with his complaints that I would like to discuss the case with neurology. Patient typically sees Dr. Puente, neurology at [facility]. It is fortunate that she was director internal communications tonight and I discussed the case with her. She felt that she likely needed to add an additional antiseizure medication. She felt that could be done through her office. She requested that we go ahead and treat him with some Ativan for tonight and they would call tomorrow. They would call in prescriptions as needed but she anticipated they would make a follow-up appointment with him either tomorrow or Wednesday. I discussed this with the patient and his and they verbalized understanding and agreement with plan. We will go ahead and discharge patient home. He was given a dose of Ativan here in the emergency room and was sent home with a to go pack of 2x 1 mg tablets of Ativan. Decision to Disposition Date: Aug 01, 2018 Decision to Disposition Time: 18:49 Depart Departure Latest Vital Signs Vital Signs Date Time Temp Pulse Resp B/P (MAP) Pulse Ox O2 Delivery O2 Flow Rate FiO2 08/01/18 19:00 59 7 122/81 (95) 97 08/01/18 15:58 97.8 Room Air Impression: Primary Impression: Seizure Condition: Improved Disposition: HOME OR SELF-CARE Patient Instructions: Recurrent Seizures in Adults (ED) Additional Instructions: Continue with your current medications. Get plenty of rest. Follow up with Dr. Puente, her office is going to call tomorrow to make an appointment tomorrow or Wednesday. Return to the ER if condition worsens. Take the Ativan three times a day as needed for seizure like activity, the auras that you described. SUNG MABRY Aug 01, 2018 16:03
[2018-08-01] MEDS ORDERED: NS(*) 0.9% 1000 ML BAG 1,000 ML IV ONE (16:16)
[2018-08-01 16:55] LABS: PLATELET COUNT, AUTOMATED 211 K/uL (150-450)
--- NOTE | 2018-08-01 17:55 | RADIOLOGY IMAGING REPORT ---
FACILITY: [facility] [place] PATIENT NAME: Wily Urbano : 1985 MR: [id number] V: [id number] EXAM DATE: ORDERING PHYSICIAN: SUNG MABRY TECHNOLOGIST: Location: [facility] Patient: Wily Urbano : 1985 Visit/Account:[id number] Date of Sevice: 08/01/2018 EXAMINATION: CT head without IV contrast HISTORY: Seizure. COMPARISON: CT head from 03/07/2017 and brain MRI from 04/23/2017. TECHNIQUE: Contiguous axial images were obtained from the skull base to the vertex without intraven ous contrast. Sagittal and coronal reformatted images are also submitted. One of the following dose optimization techniques was utilized in the performance of this exam: Autom ated exposure control; adjustment of the mA and/or kV according to the patient's size; or use of an i terative reconstruction technique. Specific details can be referenced in the facility's radiology C T exam operational policy. FINDINGS: Brain volume: Normal. Ventricles: Normal. Acute ischemic changes: None. Hemorrhage: No acute intracranial hemorrhage. Masses/edema: None. Benton-white: Negative. White matter: Normal. Vessels: Negative. Extra-axial: Negative. Calvarium/scalp: No acute fracture. Skull base/visualized face: Negative. Visualized sinuses/orbits: Mild nasal septal deviation to the left. IMPRESSION: No acute fracture, hemorrhage or intracranial mass lesion. No CT evidence of acute infarct. Report Dictated By: Rosio Gleason MD at 08/01/2018 5:50 PM Report E-Signed By: Rosio Gleason MD at 08/01/2018 5:52 PM [id number]
--- NOTE | 2018-08-01 17:57 | RADIOLOGY IMAGING REPORT ---
FACILITY: [facility] PATIENT NAME: Wily Urbano : 1985 MR: [id number] V: [id number] EXAM DATE: ORDERING PHYSICIAN: SUNG MABRY TECHNOLOGIST: [place] [facility] [place] Wily Urbano : 1985 Visit/Account:[id number] Date of Sevice: 08/01/2018 Exam type: CHEST PA LAT History: Seizure today, shortness of breath Comparison: April 22, 2014. Findings: There is hyperinflation of the lung levy. Mild chronic peribronchial thickening bilaterally. No e vidence of acute appearing infiltrates pleural effusions or pulmonary edema. The cardiac silhouette is normal in size. A nodular density projecting over the right lower thorax could represent a nipple shadow although a follow-up chest with nipple markers may be helpful IMPRESSION: 1. Hyperinflation of the lungs Mild chronic peribronchial thickening bilaterally A nodular density projects over the right lower thorax which could represent a nipple shadow although a follow-up chest with nipple markers may be helpful Report Dictated By: Lesly Mahajan MD at 08/01/2018 5:50 PM Report E-Signed By: Lesly Mahajan MD at 08/01/2018 5:53 PM WSN:[email or web address]
[2018-08-01] MEDS ORDERED: LORazepam 2 MG/ML VIAL IVP ONE (18:50)
[2018-08-01] MEDS ORDERED: LORazepam 1 MG TAB PO ONE (18:50)
[2018-08-01 19:00] VITALS: BP 122/81
== END 2018-08-01 19:26 | disposition home or self-care (01) ==
LOC: ER 16:09
DX: R56.9 Unspecified convulsions (principal); F17.210 Nicotine dependence, cigarettes, uncomplicated; Z79.899 Other long term (current) drug therapy
CPT/HCPCS: 36416; 70450; 71046; 80177; 82948; 83735; 85025; 96361; 96374; 99284; A9270; G0480; J2060; J7030; 80320; 82040; 82247; 82310; 82374; 82435; 82565; 82947; 84075; 84132; 84155; 84295; 84450; 84460; 84520